=== PATIENT | female | born 1965 | race Caucasian/White ===

== ENCOUNTER → 2020-02-06 | Outpatient (CLI) | payer OTHER ==
--- NOTE | 2020-02-10 13:47 | MM ---
Reason for exam: screening (asymptomatic). History: Patient is postmenopausal. Family history of breast cancer in paternal aunt. Benign excisional biopsy of the right breast, 1994. Benign excisional biopsy of the left breast. Physical Findings: A clinical breast exam by your physician is recommended on an annual basis and results should be correlated with mammographic findings. MG Screening Mammo w CAD Bilateral CC and MLO view(s) were taken. No prior studies available for comparison. The breast tissue is heterogeneously dense. This may lower the sensitivity of mammography. Finding: There are intermediate concern, suspicious grouped/clustered calcifications in both breasts. ASSESSMENT: Incomplete: need additional imaging evaluation, BI-RAD 0 RECOMMENDATION: Special view mammogram of both breasts. [facility] will attempt to contact patient to return for supplemental views.
== END | disposition home or self-care (01) ==
LOC: RADMAMWWP 09:38 → MERGE 09:38
PROVIDERS: ATTEND Family Medicine
DX: Z12.31 Encounter for screening mammogram for malignant neoplasm of breast (principal)
CPT/HCPCS: 77067

== ENCOUNTER → 2020-02-12 | Outpatient (CLI) | payer OTHER ==
--- NOTE | 2020-02-12 10:26 | MM ---
Reason for exam: additional evaluation requested from abnormal screening. Last mammogram was performed less than 1 month ago. History: Patient is postmenopausal. Family history of breast cancer. Benign stereotactic core biopsy of the left breast, June 12, 2002. Benign excisional biopsy of the right breast, 1994. Core biopsy of the left breast. Benign excisional biopsy of the left breast. Physical Findings: Nurse did not find any significant physical abnormalities on exam. MG Work Up Mamm w CAD BILAT Bilateral CC with magnification, MLO with magnification, and LM view(s) were taken. Prior study comparison: February 06, 2020, bilateral MG screening mammo w CAD. The breast tissue is heterogeneously dense. This may lower the sensitivity of mammography. Indeterminate group of microcalcifications outer lower right breast 6cm from nipple and upper outer left breast 4cm from nipple. These results were verbally communicated with the patient and result sheet given to the patient on 02/12/20. ASSESSMENT: Suspicious, BI-RAD 4 RECOMMENDATION: Stereotactic core biopsy of both breasts. Called Dr. Mustafa's office with mammographic findings and has scheduled an appointment for the patient for 02/26/20 at 12:[address] Alvarez. Biopsy scheduled for 02/27/20 at 8:00. PRELIMINARY REPORT CALLED AND FAXED TO DR. ALVAREZ ON 02/12/20.
== END | disposition home or self-care (01) ==
LOC: RADMAMWWP 07:50
PROVIDERS: ATTEND Family Medicine
DX: R92.8 Other abnormal and inconclusive findings on diagnostic imaging of breast (principal)
CPT/HCPCS: 77066

== ENCOUNTER → 2020-02-26 | Outpatient (CLI) | payer OTHER ==
[2020-02-26 12:18] VITALS: BP 128/86; PULSE 109; RESP 16; TEMP 98.7
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
== END | disposition home or self-care (01) ==
LOC: WWCWWP 12:06
PROVIDERS: ATTEND Surgery
DX: Z53.9 Procedure and treatment not carried out, unspecified reason (principal)

== ENCOUNTER → 2020-02-27 | Day surgery (SDC) | payer OTHER ==
[2020-02-27 07:27] VITALS: RESP 12
--- NOTE | 2020-02-27 09:31 | P.PCN ---
Date of Procedure: 02/27/20 Preoperative Diagnosis: Microcalcifications of concern in the right breast 2 areas, left breast one area; stereotactic core biopsy recommended for each of these areas Postoperative Diagnosis: Same Procedure(s) Performed: Stereotactic core biopsy lower outer quadrant right breast Anesthesia: local (18 mL of 1% plain lidocaine were utilized 12 of this was was with epinephrine) Surgeon: Iliana Alvarez Pathology: other (Breast tissue) Condition: stable Disposition: same day Indications for Procedure: Microcalcifications of concern right breast lower outer quadrant Operative Findings: Calcifications of concern noted and specimen Description of Procedure: This is a 54-year-old female who on a mammogram was noted to have 2 areas of concern in the right breast of calcifications and one in the left breast. The areas in the right breast included the lower outer quadrant and the upper outer quadrant. After review with radiology it was felt that the lower outer quadrant was more suspicious that this area should be biopsied fi rst. In the left breast additional area of microcalcifications of concern were noted which are also to be biopsy. Risks and benefits of stereotactic core biopsy were discussed with the patient and she wished to proceed. Alternatives such as watchful waiting (biopsy in the operating room were not recommended. The patient was taken to the stereotactic core biopsy room and positioned on the stereotactic table. A CC from below approach was utilized. The area of concern was identified. This area was targeted. The breast was prepped using Betadine. 12 mL of 1% lidocaine was used to anesthetize the area of concern. This was placed on the fact that the patient was only 125 pounds and would like to limit our amount of local anesthetic to approximately 28 mL. This was calculated at the pharmacy. The patient experienced increasing pain during the procedure and an additional 6 mL of 1% lidocaine were inserted into the area of work. The area of concern was targeted. A petite needle 9-gauge vacuum-assisted core rotating biopsy needle was inserted into the correct location. The needle was fired. Post films revealed that the needle was in the correct location. 24 specimens were obtained. Radiograph of the specimen revealed that the calcifications of concern had been obtained. The area was lavaged. The affluent was clear. A trimark needle was placed. The patient tolerated procedure in stable condition. The specimen was sent to pathology. The patient tolerated the procedure in stable condition. Secondary to the fact that we have a limited amount of local anesthetic a vailable to use at this time the seminal patient's weight the other 2 areas of concern with the stereotactic biopsy at a later date. Plan: 1. Follow-up Dr. Esparza next week 2. Stereotactic core biopsy right breast upper outer quadrant Stereotactic core biopsy left breast patient most likely be done at separate settings secondary to the amount of local anesthetic available for us based on the patient's weight.
[2020-02-27 10:45] VITALS: BP 135/84; PULSE 93; TEMP 98.3
--- NOTE | 2020-03-01 14:01 | MM ---
EXAMINATION TYPE: MG stereo VAD BX RT DATE OF EXAM: 02/27/2020 COMPARISON: 02/12/2020 CLINICAL HISTORY: Abnormal bilateral breast mammogram TECHNIQUE: Stereotactic guided core biopsy of right breast. FINDINGS: Images are reviewed with the surgeon. There are 2 groups of calcifications on the right breast which appears suspicious. More difficult posterior calcifications were chosen for initial targeting. Targeting was provided by radiology. Procedure was performed by surgery. Specimen: Calcifications are demonstrated within the mammographic specimen. Following the procedure large hematoma developed. This was addressed by the surgeon. Good hemostasis was obtained prior to release from the department. IMPRESSION: 1. Successful stereotactic core biopsy 1 location right breast. Recommendations: 1. Recommendations are pending pathology results. 2. There are 2 sites remaining. 3. Hematoma at the initial biopsy site Pathology Results: Benign A. RIGHT BREAST, LOWER OUTER QUADRANT LESION, NEEDLE CORE BIOPSIES: Benign fibrofatty breast parenchyma with fibrocystic spectrum lesions and coarse intraductal mineralizations. B. RIGHT BREAST, LOWER OUTER QUADRANT LESION, NEEDLE CORE BIOPSIES: Fibrofatty breast parenchyma with fibrin and some cores showing fibrocystic spectrum breast lesions. Recommendation Follow up mammogram of the right breast in 6 months. MONET
== END ==
LOC: RADMAMWWP 07:05
PROVIDERS: ATTEND Surgery
DX: N60.11 Diffuse cystic mastopathy of right breast (principal); N64.89 Other specified disorders of breast; L76.32 Postprocedural hematoma of skin and subcutaneous tissue following other procedure; R92.8 Other abnormal and inconclusive findings on diagnostic imaging of breast
CPT/HCPCS: 88305; 19081; A4648; J2001

== ENCOUNTER → 2020-03-11 | Day surgery (SDC) | payer OTHER ==
[2020-03-11 07:35] VITALS: RESP 16; TEMP 98.2
--- NOTE | 2020-03-11 09:09 | P.PCN ---
Date of Procedure: 03/11/20 Preoperative Diagnosis: Microcalcifications of concern left breast Postoperative Diagnosis: Same Procedure(s) Performed: Stereotactic core biopsy left breast Anesthesia: local Surgeon: Iliana Alvarez Estimated Blood Loss (ml): 1 Pathology: other (Breast tissue) Condition: stable Disposition: same day Indications for Procedure: Microcalcifications of concern left breast Operative Findings: Microcalcifications noted in the biopsy specimen Description of Procedure: This is a 55-year-old female who was initially scheduled for stereotactic core biopsy of 3 areas of concern 2 in the right breast and one in the left breast. She underwent right breast detected core biopsy on . Only one area in the right breast was targeted. The second area was not targeted secondary to the fact that the patient developed a hematoma at the site of the first biopsy, and wished to await biopsy of the second area. Mammograms were given reviewed with the radiologist this morning it was felt that the secondary in the right breast would benefit from targeting and biopsy, however after review with the patient secondary to the hematoma this is going to be postponed for approximately 6 weeks. The area in the left breast was felt to be suspicious. And therefore the left breast area was targeted. The patient understood risks and benefits and wished to proceed with stereotactic core biopsy of the left breast. She was taken to the sterile technique with biopsy-proven positioned on the lower rad table. A ware dresser film was obtained. The area of concern was identified. A lateral to medial approach was utilized. The lesion was in the mid left breast. Stereo films were obtained. The lesion was targeted. The breast was prepped using Betadine. 20 mL of 1% lidocaine were used to anesthetize the area of concern. A 9-gauge vacuum-assisted core rotating biopsy needle was driven to the correct coordinates. A prefire film was obtained. The needle was moved 0.5 mm in a negative direction. The needle was fired. A post-fire film was obtained. The needle appeared to be in the correct location. 9 core specimens were obtained. Radiograph of the specimens revealed microcalcifications in the specimen. A secure sofie top hat clip was placed. The patient tolerated the procedure in stable condition. The specimen was sent to pathology. The patient will follow- up with Dr. Esparza in 1 week. Depending on results of the pathology final recommendation regarding the second area of calcifications of concern in the right breast will be made in conjunction with radiology.
[2020-03-11 09:30] VITALS: BP 126/80; PULSE 77
--- NOTE | 2020-03-11 18:23 | MM ---
EXAMINATION TYPE: MG stereo VAD BX LT DATE OF EXAM: 03/11/2020 COMPARISON: 03/05/2020, 02/12/2020 CLINICAL HISTORY: Previous abnormal mammogram TECHNIQUE: Stereotactic guided core biopsy of left breast. FINDINGS: The procedure of stereotactic guided core biopsy was explained to the patient. Benefits, alternatives, and risks were discussed. An informed consent was then obtained. [facility] pathway for [facility] was chosen. Surgery performed the localization and procedure. Specimen: Calcifications are within the specimen. Postprocedure mammogram: Stereotactic core marker is in the expected location of the calcifications. IMPRESSION: 1. Successful stereotactic core biopsy left breast calcifications. Recommendations: 1. Recommendations are pending pathology results. Pathology Results: Benign LEFT BREAST, NEEDLE CORE BIOPSIES: Fibrocystic spectrum changes with adenosis and multifocal coarse intraductal mineralizations. Recommendation Follow up mammogram of the left breast in 6 months. YEMID
== END ==
LOC: RADMAMWWP 07:24
PROVIDERS: ATTEND Surgery
DX: N60.12 Diffuse cystic mastopathy of left breast (principal); N60.22 Fibroadenosis of left breast
CPT/HCPCS: 88305; 19081; A4648; J2001

== ENCOUNTER → 2020-04-01 | Outpatient (CLI) | payer OTHER ==
--- NOTE | 2020-04-01 09:29 | P.PN ---
Subjective Progress Note Date: 04/01/20 Principal diagnosis: fibrocystic breast changes Ghazal is a 55 year old female who underwent [place] stereotactic [place] [id number]. Pathology revealed fibrocystic changes and repeat left breast mammogram in 6 months is recommended. Multifocal coarse calcifications were not ed in the specimen. The patient has no complaints related to the procedure. She is status post right breast stereotactic core biopsy and [id number]. This was benign as well. Objective - Vital Signs Vital signs: Vital Signs Temp 98.2 F 04/01/20 08:54 Pulse 89 04/01/20 08:54 Resp 18 04/01/20 08:54 BP 134/88 04/01/20 08:54 Pulse Ox 98 04/01/20 08:54 Intake & Output 03/31/20 04/01/20 04/01/20 18:59 06:59 18:59 Weight 56.699 kg - Exam BMI 22.1 - Constitutional General appearance: Present: average body habitus - Respiratory Respiratory: bilateral: CTA - Cardiovascular Rhythm: regular Heart sounds: normal: S1, S2 - Integumentary Integumentary Comment(s): Bilateral ecchymosis of both breast at the biopsy sites Bilateral hematomas at biopsy sites No evidence of infection Assessment and Plan Assessment: Impression: 1. Bilateral stereotactic core biopsies of the breast benign Plan: 1. Bilateral mammograms in 6 months with physician exam at that time CC: DR. Mustafa encounter 15 minutes, > 50% of time in planning and counselling
[2020-04-01 11:20] VITALS: BP 134/88; PULSE 89; RESP 18; TEMP 98.2
== END | disposition home or self-care (01) ==
LOC: WWCWWP 08:34
PROVIDERS: ATTEND Surgery
DX: Z53.9 Procedure and treatment not carried out, unspecified reason (principal)